=== PATIENT | male | born 1970 | race Caucasian/White ===

== ENCOUNTER 2022-12-22 07:20 | Outpatient (CLI) | payer BC, SELFPAY | END 2022-12-22 07:21 | disposition home or self-care (01) | LOC: NFLDREF 13:10 | PROVIDERS: PCP Family Medicine; Referring Provider Family Medicine; Visit Provider Family Medicine | DX: E78.5 Hyperlipidemia, unspecified (principal); N40.0 Benign prostatic hyperplasia without lower urinary tract symptoms | CPT/HCPCS: 80053; 80061; 84153 ==

== ENCOUNTER 2023-03-21 06:33 | Outpatient (CLI) | payer BC, SELFPAY ==
--- NOTE | 2023-03-21 07:50 | W.ANESCHARGE ---
Anesthesia Charges Start Date/Time Anesthesia Start Date: 03/21/23 Anesthesia Start Time: 07:15 Stop Date/Time Anesthesia Stop Date: 03/21/23 Anesthesia Stop Time: 07:45
--- NOTE | 2023-03-21 08:45 | W.ANESCHARGE ---
Anesthesia Charges Start Date/Time Anesthesia Start Date: 03/21/23 Anesthesia Start Time: 07:15 Stop Date/Time Anesthesia Stop Date: 03/21/23 Anesthesia Stop Time: 07:45
== END 2023-03-21 06:34 | disposition home or self-care (01) ==
LOC: OP CLINIC 06:34
PROVIDERS: PCP Family Medicine; Visit Provider Internal Medicine
DX: Z12.11 Encounter for screening for malignant neoplasm of colon (principal); K63.5 Polyp of colon; K57.30 Diverticulosis of large intestine without perforation or abscess without bleeding; Z80.0 Family history of malignant neoplasm of digestive organs; Z86.010 Personal history of colon polyps
CPT/HCPCS: 00811; 45385; 88305; J2704